=== PATIENT | male | born 1935 | race Caucasian/White ===

== ENCOUNTER → 2023-11-13 | Outpatient (CLI) | payer MEDICARE, OTHER, SELFPAY ==
[2023-11-13 11:18] LABS: Absolute Lymphocyte Count 5.46 X10^3/uL (0.83-4.51); Basophil% 0.9 % (0-1); Eosinophil# 0.27 X10^3/uL; Eosinophils% 2.3 % (0-5); Hematocrit 46.1 % (40-54); Hemoglobin 14.9 g/dL (13.0-16.5); Lymphocyte # 5.46 X10^3/ul (0.83-4.51); Lymphocyte % 46.9 % (19-41); Mean Corp Hgb Conc 32.3 g/dL (32-36); Mean Corpuscular Hgb 27.9 pg (27.0-32.0); Mean Corpuscular Volume 86.3 fL (80-94); Mean Platelet Vol. 9.7 fl (6.2-12.0); Monocyte# 0.76 X10^3/uL; Monocyte% 6.5 % (0-10); NRBC Flagged by Analyzer 0 % (0-5); Neutrophil # 4.98 X10^3/uL (2.7-7.7); Neutrophil % 42.7 % (47-70); POSITIVE DIFFERENTIAL YES; POSITIVE MORPHOLOGY YES; Platelet Count 150 K/mm3 (150-450); RBC Distribution Width CV 17.1 % (11.6-14.6); RBC Distribution Width SD 52.7 fl (35.1-43.9); Red Blood Count 5.34 M/mm3 (4.6-6.2); White Blood Count 11.7 K/mm3 (4.4-11.0)
[2023-11-13 11:20] LABS: Differential Indicated SCAN CRITERIA MET
[2023-11-13 11:43] LABS: BNP,B-Type NATRIURETIC PEPTIDE 111.1 pg/mL (0-100)
[2023-11-13 11:56] LABS: Differential Comment SCANNED; Reactive Lymphocyte 2+
[2023-11-13 13:58] LABS: Anion Gap 4 (5-15); BUN 18 mg/dL (7-18); BUN/Creat Ratio 14.9 RATIO (10-20); Calcium,Total 9.1 mg/dL (8.5-10.1); Chloride 106 mmol/L (98-107); Creatinine, Serum 1.21 mg/dL (0.70-1.30); EST Glomerular Filtration Rate 60 mL/min (>60); Est Glom Filt Rate - Afr Amer 73 mL/min (>60); Glucose 98 mg/dL (74-106); Potassium 4.6 mmol/L (3.5-5.1); Sodium Level 138 mmol/L (136-145)
== END | disposition home or self-care (01) ==
LOC: LAB 11:03
PROVIDERS: PCP Internal Medicine; Referring Provider Physician Assistant Medical; Visit Provider Physician Assistant Medical
DX: I50.32 Chronic diastolic (congestive) heart failure (principal); I05.9 Rheumatic mitral valve disease, unspecified; R06.09 Other forms of dyspnea; I45.10 Unspecified right bundle-branch block
CPT/HCPCS: 36415; 80048; 83880; 85025

== ENCOUNTER 2023-11-29 14:22 | Inpatient (IN) | payer MEDICARE, OTHER, SELFPAY ==
[2023-11-29 14:23] VITALS: BP 126/92; PULSE 97; RESP 18; TEMP 35.9; O2SAT 92; BMI 21.8
--- NOTE | 2023-11-29 15:34 | CT_ITS ---
We are attempting to reach an attending provider to discuss findings. An addendum with communication details will be sent when the communication is complete. EXAM: CT ABDOMEN AND PELVIS WITH INTRAVENOUS CONTRAST CLINICAL INDICATION: abdominal pain TECHNIQUE: Helically acquired images were obtained of the abdomen and pelvis with intravenous contrast. CTDIvol = ( 10.92 ) mGy, DLP = ( 908.92 ) mGycm This CT exam was performed using one or more of the following dose reduction techniques: automated exposure control, adjustment of the mA and/or kV according to patient size, and/or use of iterative reconstruction technique. CONTRAST: IV 100mL Isovue-300 COMPARISON: No relevant prior studies available. FINDINGS: LOWER THORAX: Mild subsegmental atelectasis or pleural-parenchymal scarring at the lung bases. Evidence of emphysema. Cardiomegaly, incompletely imaged. No significant pericardial effusion. ABDOMEN: LIVER: Unremarkable. Homogeneous. No focal mass. GALLBLADDER AND BILE DUCTS: Unremarkable. No calcified gallstones. No gallbladder distention or wall edema. No intra- or extrahepatic biliary ductal dilation. PANCREAS: Unremarkable. No focal cystic or solid mass. SPLEEN: Unremarkable. Normal size without focal cystic or solid mass. ADRENALS: Unremarkable. No nodules. KIDNEYS AND URETERS: Small cyst involving the left kidney at the interpolar aspect. No other renal abnormalities. Normal renal size and position. No hydronephrosis. STOMACH AND BOWEL: Postsurgical changes near the GE junction. Colonic diverticulosis distally but no acute diverticulitis. No colitis or no bowel obstruction. PELVIS: APPENDIX: No evidence of acute appendicitis. BLADDER: Unremarkable. REPRODUCTIVE: Unremarkable as visualized. No mass. ABDOMEN and PELVIS: INTRAPERITONEAL SPACE: Unremarkable. No ascites or other fluid collection. No free air. BONES/JOINTS: Degenerative changes of the pelvis and spine. No suspicious lytic or blastic abnormality. SOFT TISSUES: Unremarkable. No discrete abdominal or pelvic wall hernia. VASCULATURE: Infrarenal abdominal measures up to 7.1 cm. There are several small areas of extraluminal blood at the anterior abdominal aorta and surrounding hemorrhage. Abdominal aorta is non-dilated. LYMPH NODES: Unremarkable. No enlarged lymph nodes. CT/Abdomen/Pelvis W IV Cont ONLY IMPRESSION: Ruptured abdominal aortic aneurysm. Electronically Signed: Nils Thomas MD at 16:52 EDT ,
--- NOTE | 2023-11-29 15:35 | EX.ED.DYSGE1 ---
HPI <MARTHA Hamlin - Last Filed: 11/29/23 17:23> History of Present Illness Chief Complaint: Abd Pain Narrative Narrative: Patient is an 88-year-old male with history of a AAA, COPD, hypertension, CHF who presents to the emergency department for sudden onset of lower abdominal pain. Patient has had multiple abdominal surgeries. Patient states that the pain started roughly around 12 PM today. Patient dates she has had decrease flatulence, worsening pain with any movement. Patient dates that this is a significant pain that he rates at a 10. Denies any nausea or vomiting. Patient does take Coumadin. PFS <MARTHA Hamlin - Last Filed: 11/29/23 17:23> [facility] Medical History AAA (abdominal aortic aneurysm) Ambulates with cane Anxiety Arthritis Atherosclerotic heart disease of [place] coronary artery without angina pectoris Back pain Bladder disease Cancer Cardiology follow-up encounter Chronic diastolic (congestive) heart failure Chronic systolic (congestive) heart failure COPD (chronic obstructive pulmonary disease) Dysphagia Essential (primary) hypertension Former smoker GERD (gastroesophageal reflux disease) High cholesterol History of echocardiogram History of edema History of hiatal hernia History of IBS History of pain when walking Hypertension Longstanding persistent atrial fibrillation Loss of hearing Non-ischemic cardiomyopathy On home oxygen therapy Paroxysmal atrial fibrillation with RVR Prostate disease 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 Right bundle branch block Shortness of breath on exertion Squamous cell carcinoma Thoracic aortic aneurysm (TAA) Thyroid disease Tumor of parotid gland Walker as ambulation aid Wears dentures Wears glasses Home Medications omeprazole 40 mg capsule,delayed release 40 mg PO DAILY Reflux 11/10/15 [History Last Taken 10/05/22] budesonide-formoterol HFA 160 mcg-4.5 mcg/actuation aerosol inhaler (Symbicort) 2 puff inhalation BID wheezes 11/11/15 [History Last Taken 10/05/22] fluconazole 100 mg tablet 100 mg PO WE Thrush 09/12/17 [History Last Taken 10/04/22] warfarin 1 mg tablet 1 mg PO WE Afib 10/04/17 [History Last Taken 10/01/22] warfarin 2 mg tablet 2 mg PO SUMOTUTHFRSA AFIB 10/28/18 [History Last Taken 10/04/22] famotidine 20 mg tablet 20 mg PO QHS GERD 08/18/21 [History Last Taken 10/05/22] levothyroxine 50 mcg tablet 50 mcg PO MOTUWETHFR THYROID 06/06/22 [History Last Taken 10/04/22] cholecalciferol (vitamin D3) 125 mcg (5,000 unit) capsule 125 mcg PO DAILY SUPPLEMENT 10/05/22 [History Last Taken 10/05/22] levothyroxine 50 mcg tablet 100 mcg PO SUSA THYROID 10/05/22 [History Last Taken 10/01/22] simethicone 80 mg chewable tablet 80 mg PO BID PRN Gastric Reflux 10/05/22 [History Last Taken 10/04/22] wheat dextrin 3 gram/3.5 gram oral powder 1 packet PO DAILY PRN CONSTIPATION 10/05/22 [History Last Taken 10/04/22] sertraline 50 mg tablet 25 mg (1/2 x 50 mg) PO DAILY 30 days #15 tabs 10/07/22 [Rx Last Taken Unknown] albuterol sulfate 90 mcg/actuation aerosol inhaler 2 puff inhalation Q6H PRN PRN copd 10/25/22 [History Last Taken Unknown] lorazepam 0.5 mg tablet 0.5 mg PO QHS ANXIETY 10/25/22 [History Last Taken Unknown] digoxin 125 mcg (0.125 mg) tablet 125 mcg PO DAILY #90 tabs 09/14/23 [Rx Last Taken Unknown] metoprolol succinate 25 mg tablet,extended release 24 hr 25 mg PO DAILY #90 tabs 10/23/23 [Rx Last Taken Unknown] Allergy/AdvReac Type Severity Reaction Status Date / Time aspirin AdvReac Intermediate GI upset Verified 11/29/23 14:24 in high doses Sulfa (Sulfonamide AdvReac Itching Verified 11/29/23 14:24 Antibiotics) Family History Mother Asthma CVA (cerebral vascular accident) Father Arthritis Surgical History History of left heart catheterization (11/17/15) Hx of appendectomy Hx of cholecystectomy Hx of left cataract extraction Hx of right cataract extraction Social History household members: spouse housing: house Smoking Status: Former smoker quit date: 01/03/94 pack-years: 30 how long ago did patient quit smoking: age 59 alcohol intake: current alcohol intake frequency: holidays/special occasions only caffeine: Yes Type: coffee Number of servings: 2 ROS <MARTHA Hamlin - Last Filed: 11/29/23 17:23> ROS ED ROS Narrative Constitutional: Negative for fever, chills, weight loss, weakness Eyes: Negative for vision loss, vision change, double vision ENT: Negative for any sore throat, ear pain, congestion Cardiovascular: Negative for any chest pain, tightness, palpitations Respiratory: Negative for any cough, sputum production, hemoptysis, dyspnea, dyspnea on exertion, orthopnea Gastrointestinal: Negative for any nausea, vomiting, diarrhea, constipation, blood in stool, blood in vomit. Positive for abdominal pain : Negative for any urinary frequency, dysuria, retention, blood in urine Muscle skeletal: Negative for any neck pain, back pain Neurological: Negative for any headache, syncope, dizziness Skin: Negative for any rashes, itching, abrasions, lacerations Psychiatric: Negative for any depression, anxiety, stress, suicidal ideation, homicidal ideation Hematologic: Negative for any excessive bruising, easy bleeding EXAM <MARTHA Hamlin - Last Filed: 11/29/23 17:23> Physical Exam Narrative Exam Narrative: Vital signs reviewed. HEET: Head normocephalic atraumatic, TMs clear bilaterally. Posterior pharynx is clear, moist mucous membranes. Nares clear bilaterally. Neck: Supple with no lymphadenopathy or tenderness. No signs of meningismus. Cardiac: Regular rate and rhythm no murmurs gallops or rubs, equal peripheral pulses bilaterally. Respiratory: Lungs clear to auscultation bilaterally. No chest tenderness. Abdomen: nondistended. No abdominal bruit or pulsatile masses. No hepatosplenomegaly. Patient's abdomen did show some peritoneal signs, significant pain to the lower abdomen below the umbilicus. Hypoactive bowel sounds. Extremities: No peripheral edema, no signs of gross trauma or deformity. Active full range of motion of all extremities. Neuro: Cranial nerves II through XII intact, no focal neurological deficits. Skin: Clean dry and intact with no rash, purpura, petechiae, vesicles or pustules. Backs/flank: No CVA tenderness, no midline spinal tenderness, no deformity. Psych: Normal mood and affect. No SI, HI or acute psychosis. Const Vital Signs: 11/29/23 14:23 11/29/23 16:22 Temperature 96.7 F L Temperature Source Temporal Pulse Rate 97 92 Respiratory Rate 18 18 Blood Pressure 126/92 H 134/100 H Blood Pressure Mean 103 111 Pulse Ox 92 93 Oxygen Delivery Method Room Air Room Air <Dr. Victoriano Mayer MD - Last Filed: 11/29/23 15:49> Physical Exam Const Vital Signs: 11/29/23 14:23 11/29/23 16:22 Temperature 96.7 F L Temperature Source Temporal Pulse Rate 97 92 Respiratory Rate 18 18 Blood Pressure 126/92 H 134/100 H Blood Pressure Mean 103 111 Pulse Ox 92 93 Oxygen Delivery Method Room Air Room Air MDM <MARTHA Hamlin - Last Filed: 11/29/23 17:23> MDM Lab Data Labs: Laboratory Results - last 24 hr 11/29/23 11/29/23 11/29/23 15:05 15:35 15:58 WBC 11.3 H RBC 5.17 Hgb 14.6 Hct 43.6 MCV 84.3 MCH 28.2 MCHC 33.5 RDW Std Deviation 49.7 H RDW Coeff of Darlene 16.1 H Plt Count 154 MPV 10.0 Immature Gran % (Auto) 1.300 H Neut % (Auto) 48.7 Lymph % (Auto) 40.5 [place] % (Auto) 7.0 Eos % (Auto) 1.6 Baso % (Auto) 0.9 Absolute Neuts (auto) 5.5 Absolute Lymphs (auto) 4.57 H Nucleated RBC % 0 Differential Comment PT 22.4 H INR 2.0 Sodium 138 Potassium 4.8 Chloride 105 Carbon Dioxide 25.0 Anion Gap 8 BUN 17 Creatinine 1.05 Estim Creat Clear Calc 52.02 Est GFR (MDRD) Af Amer 85 Est GFR (MDRD) Non-Af 71 BUN/Creatinine Ratio 16.2 Glucose 178 H Lactic Acid 1.8 Calcium 9.1 Total Bilirubin 1.50 H AST 30 ALT 20 Alkaline Phosphatase 131 H Total Protein 6.4 Albumin 3.4 Globulin 3.0 Albumin/Globulin Ratio 1.1 Lipase 11 L Urine Color Yellow Urine Clarity Clear Urine pH 5.0 Ur Specific [place] 1.025 Urine Protein 15 H Urine Glucose (UA) Normal Urine Ketones 5 H Urine Occult Blood Negative Urine Nitrite Negative Urine Bilirubin Negative Urine Urobilinogen 1 H Ur Leukocyte Esterase 25 H Urine RBC 0 SEEN Urine WBC 0-5 SEEN Ur Squamous Epith Cells 0-5 SEEN Urine Bacteria RARE Urine Mucus 0 SEEN Radiography Diagnostic Testing: Clinical Impression(s) from Imaging Studies Abdomen/Pelvis CT 11/29/23 15:34 IMPRESSION: Ruptured abdominal aortic aneurysm. Electronically Signed: Nils Thomas MD at 16:52 EDT , Treatment and Re-Evaluation :: Differential diagnosis includes however is not limited to: Ruptured AAA, constipation, pneumoperitoneum, diverticulitis Patient appears to be in mild distress secondary to pain to his abdomen. Patient secondary to his history will receive a CT scan of the abdomen pelvis with IV contrast. Patient received some basic laboratory values including PT/INR, CBC CMP lipase, lactic acid. CT scan of the ordered. Patient received IV fluids Zofran and morphine. Patient be reevaluated On reevaluation, the patient was feeling better. Patient's laboratory values for slight leukocytosis white blood count 11.3, patient's PT/INR shows a INR 2.0 with a PT of 22.4. Patient's lactic acid was negative. Patient's chemistries were unremarkable. Patient's urinalysis was negative for any infection. Currently waiting for a CT scan. Patient's CT scan shows a ruptured abdominal aortic aneurysm. Secondary to this finding, I did reach out to the patient's as well as the patient, they are aware the patient does have a large aneurysm that could rupture. Patient does not want any surgical intervention completed, patient will have a DNR CC filled out. Patient will be admitted for pain control. My attending did speak out to the hospitalist, patient be admitted for full under MedSurg. Patient was redosed with IV morphine. Patient again is stable at this time. DNR CC completed. <Dr. Victoriano Mayer MD - Last Filed: 11/29/23 15:49> [facility] Narrative Medical decision making narrative: I have personally performed a face to face assessment of the patient and have reviewed the RAJWINDER Note. I performed a substantive portion of the visit including all aspects of the following. My [place] findings include: 88-year-old male known history of a AAA. He had it rechecked about a year ago. They told him at that time he is not an operative candidate due to his age and other medical problems. He understands that. Today he had relatively sudden onset lower abdominal pain. Denies vomiting. No diarrhea or constipation. Denies any dysuria or fever. Exam is [a 8-year-old male vital signs stable afebrile. No acute distress. H EENT exam unremarkable. Neck nontender. Lungs clear to auscultation bilaterally. Heart irregular irregular history of A-fib. Chest wall nontender. Abdomen soft nondistended normal bowel sounds no peritoneal signs. Tender both lower quadrants. No hernia or mass. No obstruction. He has good femoral pulses bilaterally. There is no mottling of his lower extremities. He has normal range of motion and strength of both upper and lower extremities with 5 out of 5 fire management officer strength. Dorsi and plantarflexion. Neurologically is awake alert answering questions following commands.] Medical Decision Making [88-year-old known AAA that is inoperable due to multiple medical conditions and his age complaining with lower abdominal pain today differential would include AAA which currently I do not think that is what this is, diverticulitis, UTI versus other etiologies. He has had a prior appendectomy and cholecystectomy. He will be treated with IV morphine for pain. CAT scan labs are being obtained.] Other additions or changes: [None] History & Record Review Discussion w/independent historian: Patient and Family Additional record(s) reviewed:: Prior inpatient record, Prior outpatient record, Prior ED visit and Prior labs Lab Data Attestation: I reviewed the patient's lab results. Lab results narrative: CBC shows white count 1.3. H&H 14 and 43. Platelets 154. Labs: Laboratory Results - last 24 hr 11/29/23 11/29/23 11/29/23 15:05 15:35 15:58 WBC 11.3 H RBC 5.17 Hgb 14.6 Hct 43.6 MCV 84.3 MCH 28.2 MCHC 33.5 RDW Std Deviation 49.7 H RDW Coeff of Darlene 16.1 H Plt Count 154 MPV 10.0 Immature Gran % (Auto) 1.300 H Neut % (Auto) 48.7 Lymph % (Auto) 40.5 [place] % (Auto) 7.0 Eos % (Auto) 1.6 Baso % (Auto) 0.9 Absolute Neuts (auto) 5.5 Absolute Lymphs (auto) 4.57 H Nucleated RBC % 0 Differential Comment PT 22.4 H INR 2.0 Sodium 138 Potassium 4.8 Chloride 105 Carbon Dioxide 25.0 Anion Gap 8 BUN 17 Creatinine 1.05 Estim Creat Clear Calc 52.02 Est GFR (MDRD) Af Amer 85 Est GFR (MDRD) Non-Af 71 BUN/Creatinine Ratio 16.2 Glucose 178 H Lactic Acid 1.8 Calcium 9.1 Total Bilirubin 1.50 H AST 30 ALT 20 Alkaline Phosphatase 131 H Total Protein 6.4 Albumin 3.4 Globulin 3.0 Albumin/Globulin Ratio 1.1 Lipase 11 L Urine Color Yellow Urine Clarity Clear Urine pH 5.0 Ur Specific [place] 1.025 Urine Protein 15 H Urine Glucose (UA) Normal Urine Ketones 5 H Urine Occult Blood Negative Urine Nitrite Negative Urine Bilirubin Negative Urine Urobilinogen 1 H Ur Leukocyte Esterase 25 H Urine RBC 0 SEEN Urine WBC 0-5 SEEN Ur Squamous Epith Cells 0-5 SEEN Urine Bacteria RARE Urine Mucus 0 SEEN Radiography Diagnostic Testing: Clinical Impression(s) from Imaging Studies Abdomen/Pelvis CT 11/29/23 15:34 IMPRESSION: Ruptured abdominal aortic aneurysm. Electronically Signed: Nils Thomas MD at 16:52 EDT Reading Location ID and State: [facility] / [place] Tel , Service support , Discharge Plan Triage Chief Complaint: Abd Pain ED Midlevel Provider: Gonzalo Gillis ED Provider: Victoriano Mayer Dx/Rx/DC Orders Clinical Impression: Intractable abdominal pain, AAA (abdominal aortic aneurysm, ruptured) Prescriptions: No Action warfarin 1 MG tablet 1 mg PO WE Hold Instructions: Resume on 07/18/23. famotidine 20 mg tablet 20 mg PO QHS levothyroxine 50 mcg tablet 50 mcg PO MOTUWETHFR Rx Instructions: 0ne tablet Mon-Sun, 2 tablets sat and sun lorazepam 0.5 mg tablet 0.5 mg PO QHS Patient Comments: TAKE 1 TABLET BY MOUTH DAILY AT BEDTIME FOR 90 DAYS. omeprazole 40 MG capsule 40 mg PO DAILY Patient Comments: reflux budesonide-formoterol [Symbicort] 1 INHALER inhaler 2 puff INHALATION BID Patient Comments: Wheezing albuterol sulfate 90 mcg/actuation HFA aerosol inhaler 2 puff INHALATION Q6H PRN PRN (Reason: copd) Patient Comments: Breathing/COPD fluconazole 100 MG tablet 100 mg PO WE Patient Comments: Thrush warfarin 2 MG tablet 2 mg PO SUMOTUTHFRSA Hold Instructions: Resume on 07/18/23. levothyroxine 50 mcg tablet 100 mcg PO SUSA simethicone 80 mg Tablet,Chewable 80 mg PO BID PRN (Reason: Gastric Reflux) wheat dextrin 3 gram/3.5 gram Powder 1 packet PO DAILY PRN (Reason: CONSTIPATION) Rx Instructions: mix into at least 4 oz water or juice before administering cholecalciferol (vitamin D3) 125 mcg (5,000 unit) Capsule 125 mcg PO DAILY sertraline 50 mg Tablet 25 mg PO DAILY 30 Days Qty: 15 0RF digoxin 125 mcg (0.125 mg) tablet 125 mcg PO DAILY Qty: 90 3RF metoprolol succinate 25 mg tablet extended release 24 hr 25 mg PO DAILY Qty: 90 3RF Primary Care Provider: Kristina Abebe Referrals: Kristina Abebe MD [Primary Care Provider] - Disposition Disposition: Acute Care Hospital [facility]
[2023-11-29 15:44] LABS: Absolute Lymphocyte Count 4.57 X10^3/uL (0.83-4.51); Absolute Neutrophil Count 5.5 X10^3/uL (2.0-7.7); Basophil% 0.9 % (0-1); Differential Indicated SCAN CRITERIA MET; Eosinophil# 0.18 X10^3/uL; Eosinophils% 1.6 % (0-5); Hematocrit 43.6 % (40-54); Hemoglobin 14.6 g/dL (13.0-16.5); Lymphocyte # 4.57 X10^3/ul (0.83-4.51); Lymphocyte % 40.5 % (19-41); Mean Corp Hgb Conc 33.5 g/dL (32-36); Mean Corpuscular Hgb 28.2 pg (27.0-32.0); Mean Corpuscular Volume 84.3 fL (80-94); Monocyte# 0.79 X10^3/uL; NRBC Flagged by Analyzer 0 % (0-5); Neutrophil # 5.49 X10^3/uL (2.7-7.7); Neutrophil % 48.7 % (47-70); POSITIVE MORPHOLOGY YES; Platelet Count 154 K/mm3 (150-450); RBC Distribution Width CV 16.1 % (11.6-14.6); RBC Distribution Width SD 49.7 fl (35.1-43.9); Red Blood Count 5.17 M/mm3 (4.6-6.2); White Blood Count 11.3 K/mm3 (4.4-11.0)
[2023-11-29] MEDS: Ondansetron 4 MG/2 ML Vial IV ×2 (15:45→20:29)
[2023-11-29] MEDS: Morphine 4 MG/ML Syringe IV ×2 (15:45→17:31)
[2023-11-29 15:49] LABS: Prothrombin Time (Protime)PT. 22.4 SECONDS (11.7-14.9)
[2023-11-29] MEDS: 0.9% Normal Saline (1000mL) 1,000 ML 1000 ML IV (15:55)
[2023-11-29 16:02] LABS: ALB/GLOB Ratio 1.1 RATIO (0.9-2.4); AST(SGOT) 30 U/L (15-37); Alanine Aminotransfer ALT/SGPT 20 U/L (16-61); Albumin, Serum 3.4 g/dL (3.2-5.0); Alkaline Phosphatase 131 U/L (45-117); Anion Gap 8 (5-15); BUN 17 mg/dL (7-18); BUN/Creat Ratio 16.2 RATIO (10-20); Calcium,Total 9.1 mg/dL (8.5-10.1); Chloride 105 mmol/L (98-107); Creatinine, Serum 1.05 mg/dL (0.70-1.30); EST Glomerular Filtration Rate 71 mL/min (>60); Est Glom Filt Rate - Afr Amer 85 mL/min (>60); Estimated Creatinine Clearance 52.02 ml/min; Glucose 178 mg/dL (74-106); Lipase 11 U/L (13-75); Potassium 4.8 mmol/L (3.5-5.1); Protein, Total 6.4 g/dL (6.4-8.2); Sodium Level 138 mmol/L (136-145)
[2023-11-29 16:06] LABS: Mucous, Urine 0 SEEN /hpf (<or=2+); Red Blood Cells-Urine 0 SEEN /hpf (0-5)
[2023-11-29 16:08] LABS: Color, Urine Yellow (Yellow); Glucose, Dipstick Normal (Normal); Ketone-Dipstick 5 mg/dl (Negative); Leukocyte Esterase-Dipstick 25 /ul (Negative); Nitrite-Dipstick Negative (Negative); Occult Blood-Urine Negative /ul (Negative); Protein-Dipstick 15 mg/dl (Negative); Specific Gravity, Urine 1.025 (1.002-1.030); Urine Bilirubin Dipstick Negative (Negative); Urine Clarity Clear (Clear); Urine Urobilinogen 1 mg/dl (Normal)
[2023-11-29 16:18] LABS: Lactic Acid 1.8 mmol/L (0.4-1.9)
[2023-11-29 16:22] VITALS: BP 134/100; PULSE 92; RESP 18; O2SAT 93
[2023-11-29 16:58] LABS: Bacteria RARE /hpf (None Seen); Squamous Epithelial Cells - UA 0-5 SEEN /hpf (0-5); White Blood Cells 0-5 SEEN /hpf (0-5)
[2023-11-29 17:27] VITALS: BP 95/69; PULSE 110; RESP 18; TEMP 36.6; O2SAT 95
--- NOTE | 2023-11-29 17:45 | NURSING ---
[facility]UR[facility], ABD PAIN, DNR CC
[2023-11-29 18:00] VITALS: BP 102/78; PULSE 109; RESP 20; O2SAT 92
--- NOTE | 2023-11-29 18:24 | HP.PCM.HOS_ITS ---
HPI - General General Date of Admission: 11/29/23 Date of Service: 11/29/23 Chief Complaint: abdominal pain HPI Narrative NICOLAS ANDUJAR, is a 88 M who presents with abdominal pain. Began today. Was epigastric. Presented to the emergency room where is found that he had a ruptured abdominal aortic aneurysm. ED physician spoke with the patient and patient elected not to proceed with surgery and then the hospital service was contacted for admission. Went down to talk to the patient and his and told that he had a ruptured aortic aneurysm. They were shocked because they were told that it was a leak. Nonetheless, patient does not want to have surgery. [facility] Medical History AAA (abdominal aortic aneurysm) Ambulates with cane Anxiety Arthritis Atherosclerotic heart disease of [place] coronary artery without angina pectoris Back pain Bladder disease Cancer Cardiology follow-up encounter Chronic diastolic (congestive) heart failure Chronic systolic (congestive) heart failure COPD (chronic obstructive pulmonary disease) Dysphagia Essential (primary) hypertension Former smoker GERD (gastroesophageal reflux disease) High cholesterol History of echocardiogram History of edema History of hiatal hernia History of IBS History of pain when walking Hypertension Longstanding persistent atrial fibrillation Loss of hearing Non-ischemic cardiomyopathy On home oxygen therapy Paroxysmal atrial fibrillation with RVR Prostate disease 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 Right bundle branch block Shortness of breath on exertion Squamous cell carcinoma Thoracic aortic aneurysm (TAA) Thyroid disease Tumor of parotid gland Walker as ambulation aid Wears dentures Wears glasses Home Medications omeprazole 40 mg capsule,delayed release 40 mg PO DAILY Reflux 11/10/15 [History Last Taken 10/05/22] budesonide-formoterol HFA 160 mcg-4.5 mcg/actuation aerosol inhaler (Symbicort) 2 puff inhalation BID wheezes 11/11/15 [History Last Taken 10/05/22] fluconazole 100 mg tablet 100 mg PO WE Thrush 09/12/17 [History Last Taken 10/04/22] warfarin 1 mg tablet 1 mg PO WE Afib 10/04/17 [History Last Taken 10/01/22] warfarin 2 mg tablet 2 mg PO SUMOTUTHFRSA AFIB 10/28/18 [History Last Taken 10/04/22] famotidine 20 mg tablet 20 mg PO QHS GERD 08/18/21 [History Last Taken 10/05/22] levothyroxine 50 mcg tablet 50 mcg PO MOTUWETHFR THYROID 06/06/22 [History Last Taken 10/04/22] cholecalciferol (vitamin D3) 125 mcg (5,000 unit) capsule 125 mcg PO DAILY SUPPLEMENT 10/05/22 [History Last Taken 10/05/22] levothyroxine 50 mcg tablet 100 mcg PO SUSA THYROID 10/05/22 [History Last Taken 10/01/22] simethicone 80 mg chewable tablet 80 mg PO BID PRN Gastric Reflux 10/05/22 [History Last Taken 10/04/22] wheat dextrin 3 gram/3.5 gram oral powder 1 packet PO DAILY PRN CONSTIPATION 10/05/22 [History Last Taken 10/04/22] sertraline 50 mg tablet 25 mg (1/2 x 50 mg) PO DAILY 30 days #15 tabs 10/07/22 [Rx Last Taken Unknown] albuterol sulfate 90 mcg/actuation aerosol inhaler 2 puff inhalation Q6H PRN PRN copd 10/25/22 [History Last Taken Unknown] lorazepam 0.5 mg tablet 0.5 mg PO QHS ANXIETY 10/25/22 [History Last Taken Unknown] digoxin 125 mcg (0.125 mg) tablet 125 mcg PO DAILY #90 tabs 09/14/23 [Rx Last Taken Unknown] metoprolol succinate 25 mg tablet,extended release 24 hr 25 mg PO DAILY #90 tabs 10/23/23 [Rx Last Taken Unknown] Allergy/AdvReac Type Severity Reaction Status Date / Time aspirin AdvReac Intermediate GI upset Verified 11/29/23 14:24 in high doses Sulfa (Sulfonamide AdvReac Itching Verified 11/29/23 14:24 Antibiotics) Family History Mother Asthma CVA (cerebral vascular accident) Father Arthritis Surgical History History of left heart catheterization (11/17/15) Hx of appendectomy Hx of cholecystectomy Hx of left cataract extraction Hx of right cataract extraction Social History household members: spouse housing: house Smoking Status: Former smoker quit date: 01/03/94 pack-years: 30 how long ago did patient quit smoking: age 59 alcohol intake: current alcohol intake frequency: holidays/special occasions only caffeine: Yes Type: coffee Number of servings: 2 ROS ROS Narrative All review of systems were negative except as mentioned above in the history of present illness and the other review of systems. Vital Signs Vital Signs Vital Signs: 11/29/23 14:23 11/29/23 16:22 11/29/23 17:27 Temperature 35.9 C L 36.6 C Temperature Source Temporal Pulse Rate 97 92 110 H Respiratory Rate 18 18 18 Blood Pressure 126/92 H 134/100 H 95/69 Blood Pressure Mean 103 111 77 Pulse Ox 92 93 95 Oxygen Delivery Method Room Air Room Air 11/29/23 18:00 Temperature Temperature Source Pulse Rate 109 H Respiratory Rate 20 H Blood Pressure 102/78 Blood Pressure Mean 86 Pulse Ox 92 Oxygen Delivery Method Room Air Weight Weight: 77.111 kg Body Mass Index (BMI) 21.8 Physical Exam Const alert and no apparent distress Constitutional Narrative: Nontoxic. Alert. Resp normal respiratory effort and no retractions Cardio regular rate, regular rhythm, S1 normal heart sound and S2 normal heart sound GI normal to inspection, nondistended, normoactive bowel sounds, soft to palpation, non-tender and non-distended Extremity Extremity Narrative: Epigastric abdominal tenderness. Nondistended. Neuro Sensorium / Orientation: awake and alert Psych affect normal Results Lab / Micro Data 11/29/23 15:05 11/29/23 15:05 Labs: Laboratory Results - last 24 hr 11/29/23 15:05: WBC 11.3 H, RBC 5.17, Hgb 14.6, Hct 43.6, MCV 84.3, MCH 28.2, MCHC 33.5, RDW Std Deviation 49.7 H, RDW Coeff of Darlene 16.1 H, Plt Count 154, MPV 10.0, Immature Gran % (Auto) 1.300 H, Neut % (Auto) 48.7, Lymph % (Auto) 40.5, [place] % (Auto) 7.0, Eos % (Auto) 1.6, Baso % (Auto) 0.9, Absolute Neuts (auto) 5.5, Absolute Lymphs (auto) 4.57 H, Nucleated RBC % 0, Differential Comment , PT 22.4 H, INR 2.0, Sodium 138, Potassium 4.8, Chloride 105, Carbon Dioxide 25.0, Anion Gap 8, BUN 17, Creatinine 1.05, Estim Creat Clear Calc 52.02, Est GFR (MDRD) Af Amer 85, Est GFR (MDRD) Non-Af 71, BUN/Creatinine Ratio 16.2, Glucose 178 H, Calcium 9.1, Total Bilirubin 1.50 H, AST 30, ALT 20, Alkaline Phosphatase 131 H, Total Protein 6.4, Albumin 3.4, Globulin 3.0, Albumin/Globulin Ratio 1.1, Lipase 11 L 11/29/23 15:35: Lactic Acid 1.8 11/29/23 15:58: Urine Color Yellow, Urine Clarity Clear, Urine pH 5.0, Ur Specific [place] 1.025, Urine Protein 15 H, Urine Glucose (UA) Normal, Urine Ketones 5 H, Urine Occult Blood Negative, Urine Nitrite Negative, Urine Bilirubin Negative, Urine Urobilinogen 1 H, Ur Leukocyte Esterase 25 H, Urine RBC 0 SEEN, Urine WBC 0-5 SEEN, Ur Squamous Epith Cells 0-5 SEEN, Urine Bacteria RARE, Urine Mucus 0 SEEN Imaging Radiology Impression Abdomen/Pelvis CT 11/29/23 15:34 IMPRESSION: Ruptured abdominal aortic aneurysm. Electronically Signed: Nils Thomas MD at 16:52 EDT , ADDENDUM: 11/29/23 1739 IMPRESSION: undefined ADDENDUM: 11/29/23 1741 IMPRESSION: undefined Assessment & Plan Assessment/Plan (1) AAA (abdominal aortic aneurysm, ruptured): PLAN: Plan Ruptured abdominal aortic aneurysm * Reviewed the CAT scan findings with the patient and his . They are initially told it was a leak. They understand that he is currently stable and that things may have potentially have sealed off as this is at this point in time not a catastrophic rupture. However, it could become catastrophic. Patient states that he would not want surgery. I then recommended hospice and comfort measures. He was agreeable and later his was as well. Will cons ult hospice care to see him. He is expressing desire to go home with hospice services. Will see what they can arrive after speaking with him. * Given his hospice level of care, will not aggressively treat this aneurysm nor rupture. * I will give the patient one-time dose of vitamin K as his INR was 2. * Clear to the patient and his that if this aneurysm becomes much more severe then perhaps going home with hospice may not be feasible. Told him that we will play that by ear and regards to how he does. Chronic conditions: Will not be actively treated given his hospice level of care. * BPH, status post TURP. * Persistent atrial fibrillation: Holding off on warfarin. CODE STATUS: Addressed with the patient. Patient is DNR comfort care. VTE prophylaxis not indicated in a hospice patient. Advance care planning: Spent additional 20 minutes discussing with patient and his about hospice services, potential outcomes without surgery potential outcomes that could happen with or without surgery. Discussing hospice services as well and potential for hospice at home. Charges/Coding Visit Charges Inpatient E&M: 38945 Init Hosp L2 Procedures Hospitalists Procedures: 42075 Critical Care Addl 30 Min
[2023-11-29 19:41] VITALS: BMI 20.5
[2023-11-29 19:47] VITALS: BP 116/76; PULSE 62; RESP 18; TEMP 36.6; O2SAT 90
[2023-11-29] MEDS: 0.9% Normal Saline (1000mL) 1,000 ML 75 ML IV (20:17)
[2023-11-29] MEDS: Phytonadione (Vit K1) 5 MG TABLET PO (20:18)
[2023-11-29 20:21] VITALS: BP 129/91; PULSE 62; RESP 18; TEMP 36.6; O2SAT 96
[2023-11-29] MEDS: Morphine 2 MG/ML Syringe IV (20:30)
[2023-11-29] MEDS: LORazepam 0.5 MG Tablet PO (21:11)
[2023-11-30 02:26] VITALS: BP 102/74; PULSE 95; RESP 18; TEMP 36.6; O2SAT 97
[2023-11-30] MEDS: Morphine 2 MG/ML Syringe IV (02:27)
[2023-11-30 06:00] LABS: Absolute Lymphocyte Count 9.43 X10^3/uL (0.83-4.51); Absolute Neutrophil Count 12.7 X10^3/uL (2.0-7.7); Basophil# 0.09 X10^3/uL; Basophil% 0.4 % (0-1); Eosinophil# 0.01 X10^3/uL; Hematocrit 37.7 % (40-54); Hemoglobin 12.6 g/dL (13.0-16.5); Lymphocyte # 9.43 X10^3/ul (0.83-4.51); Lymphocyte % 38.5 % (19-41); Mean Corp Hgb Conc 33.4 g/dL (32-36); Mean Corpuscular Hgb 28.6 pg (27.0-32.0); Mean Corpuscular Volume 85.5 fL (80-94); Mean Platelet Vol. 9.9 fl (6.2-12.0); Monocyte% 6.9 % (0-10); NRBC Flagged by Analyzer 0.1 % (0-5); Neutrophil # 12.72 X10^3/uL (2.7-7.7); Neutrophil % 52.1 % (47-70); POSITIVE DIFFERENTIAL YES; POSITIVE MORPHOLOGY YES; Platelet Count 185 K/mm3 (150-450); RBC Distribution Width CV 16.3 % (11.6-14.6); RBC Distribution Width SD 50.9 fl (35.1-43.9); Red Blood Count 4.41 M/mm3 (4.6-6.2); White Blood Count 24.5 K/mm3 (4.4-11.0)
[2023-11-30 07:18] LABS: Differential Indicated SCAN CRITERIA MET
[2023-11-30 07:20] LABS: Differential Comment SCANNED
[2023-11-30 08:07] VITALS: BP 105/72; PULSE 97; RESP 20; TEMP 36.2; O2SAT 95
[2023-11-30] MEDS: 0.9% Normal Saline (1000mL) 1,000 ML 75 ML IV (08:47)
[2023-11-30 12:19] VITALS: BP 117/75; PULSE 90; RESP 20; TEMP 36.5; O2SAT 91
--- NOTE | 2023-11-30 15:05 | NURSING ---
I Nora Garcia MSN, RN nursing education consultant agree with all documentation placed by Marlen Lorenzana.
--- NOTE | 2023-11-30 15:39 | PCM.DC.SUM ---
Providers Date of Admission: 11/29/23 Date of Discharge: 11/30/23 Primary Care Physician: Dr. Kristina Abebe MD Consultations 11/29/23 19:57 Consult: Hospice / Palliative Care Routine Consulting Provider: [facility] Reason for Consult: end of life care. ruptured AAA EMERGENT Consult: No MD Notified: Yes Date Notified: 11/29/23 Time Notified: 21:27 Method of Notification: Answering Service Reason For Visit: RUPTURED AORTIC ANEURYSM Diagnosis Discharge Diagnosis (1) AAA (abdominal aortic aneurysm, ruptured): Status: Acute Code(s): I71.30 - Abdominal aortic aneurysm, ruptured, unspecified Plan 1. Ruptured abdominal aortic aneurysm #2 acute anemia secondary to ruptured abdominal aortic aneurysm #3 hypoxia #4 chronic obstructive pulmonary disease Medications at Discharge Home Medications omeprazole 40 mg capsule,delayed release 40 mg PO DAILY Reflux 11/10/15 budesonide-formoterol HFA 160 mcg-4.5 mcg/actuation aerosol inhaler (Symbicort) 2 puff inhalation BID wheezes 11/11/15 fluconazole 100 mg tablet 100 mg PO WE Thrush 09/12/17 warfarin 1 mg tablet 1 mg PO .monfriwed Afib 10/04/17 warfarin 2 mg tablet 2 mg PO TUTHSA AFIB 10/28/18 famotidine 20 mg tablet 20 mg PO QHS GERD 08/18/21 levothyroxine 50 mcg tablet 50 mcg PO MOTUWETHFR THYROID 06/06/22 cholecalciferol (vitamin D3) 125 mcg (5,000 unit) capsule 125 mcg PO DAILY SUPPLEMENT 10/05/22 levothyroxine 50 mcg tablet 100 mcg PO SUSA THYROID 10/05/22 simethicone 80 mg chewable tablet 80 mg PO BID PRN Gastric Reflux 10/05/22 wheat dextrin 3 gram/3.5 gram oral powder 1 packet PO DAILY PRN CONSTIPATION 10/05/22 sertraline 50 mg tablet 25 mg (1/2 x 50 mg) PO DAILY 30 days #15 tabs 10/07/22 albuterol sulfate 90 mcg/actuation aerosol inhaler 2 puff inhalation Q6H PRN PRN copd 10/25/22 lorazepam 0.5 mg tablet 0.5 mg PO QHS ANXIETY 10/25/22 digoxin 125 mcg (0.125 mg) tablet 125 mcg PO DAILY #90 tabs 09/14/23 metoprolol succinate 25 mg tablet,extended release 24 hr 25 mg PO DAILY #90 tabs 10/23/23 Lactobacillus acidophilus 20 billion cell capsule (Florajen Acidophilus) 100 mmu cells PO DAILY probiotic 11/29/23 acetaminophen 500 mg tablet (Tylenol Extra Strength) 1,000 mg PO BID pain 11/29/23 Hospital Course Operations None Procedures None Summary of Care Provided Minutes Spent on Discharge: 30 Hospital Course: This 88-year-old white male was seen in the emergency room at [facility] with complaints of abdominal pain, he has a history of an abdominal aortic aneurysm and he told the emergency room physician that he stopped following the diameter of this aneurysm because of his age. Workup in the emergency room included imaging studies which showed a rupture of the abdominal aortic aneurysm, there were several small areas of extraluminal blood at the anterior abdominal aorta and surrounding hemorrhage. Patient's hemoglobin was 14.6. Conversations were carried out with the patient and his , he confirmed that he wanted comfort care and the patient was admitted to [place] [address] and hospice was consulted and saw the patient on 11/30/2023. The following morning, patient's hemoglobin had dropped to 12.6 and his white count had elevated to 24.5. Patient was treated with IV analgesics and was comfortable. On that day patient was seen and examined: On examination he appeared in good health and spirits. Vital signs as documented. Skin warm and dry and without overt rashes. Neck without JVD, neck was supple, trachea midline, thyroid was normal. Lungs clear bilaterally, normal air movement was noted. Heart exam notable for regular rhythm, normal sounds and absence of murmurs, rubs or gallops. Abdomen unremarkable and without evidence of organomegaly, masses, or abdominal aortic enlargement. Bowel sounds are present, abdomen is not distended. Extremities nonedematous, no cyanosis was noted, no clubbing was noted. Neuro: Cranial nerves II through XII are grossly intact, no focal motor deficits were noted, sensation to light touch and pinprick intact, motor exam 5/5 throughout. Psych: Patient is alert and oriented x3, he does not appear anxious or depressed, he does not appear agitated. Hospice agreed to take the patient as an inpatient to [facility], he was transported in stable condition on 11/30/2023. Weight / BMI Weight Weight: 74.752 kg Body Mass Index (BMI) 20.5 ABG / Lab / Microbiology Data 11/30/23 05:30 11/29/23 15:05 Laboratory: Laboratory Results - last 24 hr 11/29/23 15:05: WBC 11.3 H, RBC 5.17, Hgb 14.6, Hct 43.6, MCV 84.3, MCH 28.2, MCHC 33.5, RDW Std Deviation 49.7 H, RDW Coeff of Darlene 16.1 H, Plt Count 154, MPV 10.0, Immature Gran % (Auto) 1.300 H, Neut % (Auto) 48.7, Lymph % (Auto) 40.5, [place] % (Auto) 7.0, Eos % (Auto) 1.6, Baso % (Auto) 0.9, Absolute Neuts (auto) 5.5, Absolute Lymphs (auto) 4.57 H, Nucleated RBC % 0, Differential Comment , PT 22.4 H, INR 2.0, Sodium 138, Potassium 4.8, Chloride 105, Carbon Dioxide 25.0, Anion Gap 8, BUN 17, Creatinine 1.05, Estim Creat Clear Calc 52.02, Est GFR (MDRD) Af Amer 85, Est GFR (MDRD) Non-Af 71, BUN/Creatinine Ratio 16.2, Glucose 178 H, Calcium 9.1, Total Bilirubin 1.50 H, AST 30, ALT 20, Alkaline Phosphatase 131 H, Total Protein 6.4, Albumin 3.4, Globulin 3.0, Albumin/Globulin Ratio 1.1, Lipase 11 L 11/29/23 15:35: Lactic Acid 1.8 11/29/23 15:58: Urine Color Yellow, Urine Clarity Clear, Urine pH 5.0, Ur Specific [place] 1.025, Urine Protein 15 H, Urine Glucose (UA) Normal, Urine Ketones 5 H, Urine Occult Blood Negative, Urine Nitrite Negative, Urine Bilirubin Negative, Urine Urobilinogen 1 H, Ur Leukocyte Esterase 25 H, Urine RBC 0 SEEN, Urine WBC 0-5 SEEN, Ur Squamous Epith Cells 0-5 SEEN, Urine Bacteria RARE, Urine Mucus 0 SEEN 11/30/23 05:30: WBC 24.5 H, RBC 4.41 L, Hgb 12.6 L, Hct 37.7 L, MCV 85.5, MCH 28.6, MCHC 33.4, RDW Std Deviation 50.9 H, RDW Coeff of Darlene 16.3 H, Plt Count 185, MPV 9.9, Immature Gran % (Auto) 2.100 H, Neut % (Auto) 52.1, Lymph % (Auto) 38.5, [place] % (Auto) 6.9, Eos % (Auto) 0.0, Baso % (Auto) 0.4, Absolute Neuts (auto) 12.7 H, Absolute Lymphs (auto) 9.43 H, Nucleated RBC % 0.1, Differential Comment SCANNED Radiography Diagnostic Testing: Radiology Impression Abdomen/Pelvis CT 11/29/23 15:34 IMPRESSION: Ruptured abdominal aortic aneurysm. Electronically Signed: Nils Thomas MD at 16:52 EDT Reading Location ID and State: [address] [place] [address] Tel , Service support , ADDENDUM: 11/29/23 173 IMPRESSION: undefined ADDENDUM: 11/29/23 174 IMPRESSION: undefined Meaningful Use Info Meaningful Use Meaningful Use Diagnoses (Choose all that apply): None applicable Ischemic Stroke Statin Dosing Therapy Reference: STATIN DOSE THERAPY REFERENCE: * Patients > 75 years receive moderate or high dose statin therapy. * Patients 75 years or YOUNGER should receive HIGH intensity statin dose unless contraindicated. You will be required to document reason for non-treatment if statin daily dose does not meet guidelines. HIGH DOSE STATIN THERAPY DAILY Atorvastatin > than or = to 40 mg Rosuvastatin > than or = to 20 mg Amlodipine + Atorvastatin > than or = to 2.5/40 mg Ezetimibe + Simvastatin 10/80 mg Simvastatin 80mg Discharge Plan Admission Admit Date/Time: 11/29/23 17:26 Primary Reason for Your Visit: Ruptured aortic aneurysm Attending Provider: Son Lofton Primary Care Provider: Kristina Abebe Consulting Providers: Gary Jordan; Jessica Orantes; Maddy Ribeiro; Anabell Miller PRIMARY HEALTH ORGANISATION MANAGER Discharge Orders/Prescriptions Prescriptions: No Action warfarin 1 MG tablet 1 mg PO .monfriwed Hold Instructions: Resume on 07/18/23. famotidine 20 mg tablet 20 mg PO QHS levothyroxine 50 mcg tablet 50 mcg PO MOTUWETHFR Rx Instructions: 0ne tablet Mon-Fri, 2 tablets sat and sun lorazepam 0.5 mg tablet 0.5 mg PO QHS Patient Comments: TAKE 1 TABLET BY MOUTH DAILY AT BEDTIME FOR 90 DAYS. omeprazole 40 MG capsule 40 mg PO DAILY Patient Comments: reflux budesonide-formoterol [Symbicort] 1 INHALER inhaler 2 puff INHALATION BID Patient Comments: Wheezing albuterol sulfate 90 mcg/actuation HFA aerosol inhaler 2 puff INHALATION Q6H PRN PRN (Reason: copd) Patient Comments: Breathing/COPD fluconazole 100 MG tablet 100 mg PO WE Patient Comments: Thrush Rx Instructions: takes on sun warfarin 2 MG tablet 2 mg PO TUTHSA Hold Instructions: Resume on 07/18/23. Rx Instructions: 2 mg orally; levothyroxine 50 mcg tablet 100 mcg PO SUSA simethicone 80 mg Tablet,Chewable 80 mg PO BID PRN (Reason: Gastric Reflux) wheat dextrin 3 gram/3.5 gram Powder 1 packet PO DAILY PRN (Reason: CONSTIPATION) Rx Instructions: mix into at least 4 oz water or juice before administering cholecalciferol (vitamin D3) 125 mcg (5,000 unit) Capsule 125 mcg PO DAILY sertraline 50 mg Tablet 25 mg PO DAILY 30 Days Qty: 15 0RF acetaminophen [Tylenol Extra Strength] 500 mg tablet 1,000 mg PO BID Florajen Acidophilus 20 billion cell capsule 100 mmu cells PO DAILY digoxin 125 mcg (0.125 mg) tablet 125 mcg PO DAILY Qty: 90 3RF metoprolol succinate 25 mg tablet extended release 24 hr 25 mg PO DAILY Qty: 90 3RF Referrals / Follow Up: Kristina Abebe MD [Primary Care Provider] - Disposition Disposition (needs filled in before D/C Order can be placed): Hospice in Medical Facility Charges/Coding Visit Charges Inpatient E&M: 03075 Disch Hosp
--- NOTE | 2023-11-30 15:39 | CHAPLAIN ---
Type of Pastoral Visit _x__ Initial Visit ___ Follow-up Visit ___ On-call Visit ___ General Patient Visit ___ Spiritual Assessment ___ Family Conference ___ Bereavement ___ Rapid Response ___ Code Blue ___ Other (describe below) Pastoral Care Referral From _x__ Patient _x__ Family ___ Nurse ___ Physician ___ [employer] Laminating Operator ___ Cable Tender ___ Other (describe below) Sacrament/Intervention _x__ Active listening ___ Anointing ___ Confucianist ___ Bereavement ___ Communion _x__ Mary exploration ___ _x__ Life review _x__ Prayer ___ Reconciliation ___ Sacrament of Sick _x__ Supportive presence ___ Wedding ___ Other (describe below) Pastoral Comments this patient has been seen before by this city constable; yesterday this patient was in the waiting room of ED and was offered support there; spouse is with the patient and she is welcoming as well; offer of presence and support given; spouse indicates that hospice will be taking over care and that transport will be coming very soon; pt states that he knew that this day was coming and is fine with whatever happens; pt is not a candidate for surgery and this is his chosen option; pt states that he is at peace and has put it in God's hands; explored more of patient's mary and his preparation for end-of-life concerns; pt again states he is fine with the plan and his own end-of-life; asked about his mary community the patient states [facility] and asks this city constable if he knows his grandson who is a diagnostic medical sonographer; pt would like this city constable to call his grandson and notify him of this situation; patient says that he wants prayers for his ; hospice transport arrives; prayer is given for patient and spouse; a phone call was made to the grandson as requested
[2023-12-04 15:07] LABS: Pathologist Review Reviewed
== END 2023-11-30 14:15 | disposition hospice, inpatient (51) | DRG 300 ==
LOC: ED 17:28 → MS3 17:49
PROVIDERS: Nurse Practitioner; Admitting Provider Internal Medicine; Emergency Provider Emergency Medicine; PCP Internal Medicine; Visit Provider Internal Medicine
DX: I71.30 Abdominal aortic aneurysm, ruptured, unspecified (principal); D62 Acute posthemorrhagic anemia; I50.42 Chronic combined systolic (congestive) and diastolic (congestive) heart failure; I11.0 Hypertensive heart disease with heart failure; Z99.81 Dependence on supplemental oxygen; J44.9 Chronic obstructive pulmonary disease, unspecified; I48.0 Paroxysmal atrial fibrillation; E78.00 Pure hypercholesterolemia, unspecified; I25.10 Atherosclerotic heart disease of native coronary artery without angina pectoris; K21.9 Gastro-esophageal reflux disease without esophagitis; F41.9 Anxiety disorder, unspecified; Z79.51 Long term (current) use of inhaled steroids; Z79.01 Long term (current) use of anticoagulants; Z87.891 Personal history of nicotine dependence; R09.02 Hypoxemia; Z85.828 Personal history of other malignant neoplasm of skin; Z79.899 Other long term (current) drug therapy; Z90.49 Acquired absence of other specified parts of digestive tract; Z98.41 Cataract extraction status, right eye; Z98.42 Cataract extraction status, left eye
CPT/HCPCS: 36415; 74177; 80053; 81001; 83605; 83690; 85025; 85610; 99284; J7030; Q9967; A4216; J2405